=== PATIENT | female | born 1975 | race Caucasian/White ===

== ENCOUNTER 2018-03-01 21:33 | Emergency (ER) | payer OTHER ==
--- OUTSIDE RECORDS SUMMARY | 2018-03-01 21:36 | XMS REPORT | Clinical Summary ---
:1975 Author Organization [facility] Address [address] [place] [address] Phone Care Team Providers Name Role Phone Unavailable Primary Care Provider Unavailable Allergies No Known Allergies Current Medications Not on file Active Problems Not on file Social History Tobacco Use Types Packs/Day Years Used Date Never Assessed Sex Assigned at Date Recorded Not on file Last Filed Vital Signs Not on file Plan of Treatment Not on file Results Not on fileafter 02/28/2017
[2018-03-01 23:44] LABS: Absolute Lymphocytes (CBC) 1.6 K/uL (0.7-4.9); Absolute Monocytes 0.6 K/uL (0.1-1.3); Absolute Neutrophil 10.4 K/uL (1.8-8.0); Basophils % 0.2 % (0-1.3); Eosinophils % 0.4 % (0-4.4); Hematocrit 40.8 % (36.0-45.0); Lymphocytes % 12.7 % (15.3-44.8); MCH 29.6 pg (27.0-35.0); MCV 88.6 fL (80-100)
[2018-03-01 23:50] LABS: Potassium 3.7 mEq/L (3.6-5.0)
[2018-03-01 23:56] LABS: Albumin 3.6 g/dL (3.2-5.5); Bilirubin Direct 0.2 mg/dL (0-0.2); Bilirubin Total 0.6 mg/dL (0.3-1.2); Protein, Total 7.8 g/dL (6.0-8.3)
[2018-03-01 23:59] LABS: CKMB Creatine Kinase MB 2.4 ng/ml (0.3-4.0)
[2018-03-02 00:01] LABS: Protime INR 1.27
[2018-03-02] MEDS ORDERED: MORPHINE 4 MG/ML SYR ONE (00:17)
[2018-03-02] MEDS ORDERED: ONDANSETRON 4 MG/2 ML VIAL ONE (00:17)
[2018-03-02] MEDS ORDERED: NA CHLORIDE 0.9% 1,000 ML ONE (00:57)
[2018-03-02 02:19] LABS: Urine Blood NEGATIVE (NEG); Urine Glucose NEGATIVE (NEG); Urine Protein NEGATIVE (NEG); Urine Specific Gravity 1.015 (1.005-1.030); Urine pH 7.5 (5.0-7.0)
[2018-03-02] MEDS ORDERED: FLEET ENEMA ADULT PR ONE (02:59)
[2018-03-02] MEDS ORDERED: MAGNESIUM CITRATE 300 ML BOT ONE (02:59)
--- NOTE | 2018-03-02 03:56 | ER ---
Nurse's Notes [facility] Name: Cesilia Ravi Age: 42 yrs Sex: Female : 1975 Arrival Date: 03/01/2018 Time: 21:35 Bed 17 Private MD: Diagnosis: Fecal impaction Presentation: 03/01 21:45 Presenting complaint: Patient states: "I had a rectal abscess removed last year that lk1 lasted for a year. They fixed it two months ago. I now have lost all control of my bowels. 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 Transition of care: patient was not received from another setting of care. Onset of symptoms was February 12, 2018. Initial Sepsis Screen: Does the patient meet any 2 criteria? No. Patient's initial sepsis screen is negative. Does the patient have a suspected source of infection? No. Patient's initial sepsis screen is negative. Care prior to arrival: None. 21:45 Method Of Arrival: Wheelchair lk1 21:45 Acuity: TONY 3 lk1 Triage Assessment: 21:48 General: Appears uncomfortable, Behavior is appropriate for age, agitated, anxious. lk1 Pain: Complains of pain in abdomen Pain currently is 10 out of 10 on a pain scale. GI: Reports diarrhea. 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 - Social history:: Smoking status: Patient/guardian denies using tobacco. Screenin:59 Abuse screen: Denies threats or abuse. Denies injuries from another. Nutritional bp screening: No deficits noted. Tuberculosis screening: No symptoms or risk factors identified. Fall Risk None identified. Assessment: 21:57 Reassessment: PT ANXIOUS, STATES BOWEL INCONTINENCE AND BUE/BLE IMMOBILITY AFTER RECTAL bp ABSCESS REMOVAL. PT MOVING EXTREMITIES WITHOUT DIFFICULTY. General: Appears distressed, comfortable, obese, Behavior is cooperative, appropriate for age, anxious. Pain: Complains of pain in buttocks. Neuro: Level of Consciousness is awake, alert, obeys commands, Oriented to person, place, time, situation, Appropriate for age. Cardiovascular: No deficits noted. Respiratory: Airway is patent Respiratory effort is even, unlabored, Respiratory pattern is regular, symmetrical. GI: Reports diarrhea. : No signs and/or symptoms were reported regarding the genitourinary system. EENT: No deficits noted. Derm: No deficits noted. Musculoskeletal: Circulation, motion, and sensation intact. Range of motion: intact in all extremities. 23:17 Reassessment: PT DRINKING PO CONTRAST, CT PENDING. PT STATES UNABLE TO MOVE ARMS TO bp CHANGE OWN BRIEF, BUT NO ALTERED ROM NOTED. 23:29 Reassessment: PO CONTRAST COMPLETED, CT NOTIFIED. 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 bp 02:52 Reassessment: PER PROVIDER, PT HAS FECAL IMPACTION, MOVED TO B/S COMMODE. bp 03:40 Reassessment: PT HAD SUCCESSFUL BOWEL MOVEMENT, PROVIDER NOTIFIED. bp 04:17 Reassessment: PT D/C HOME AMBULATORY, DX WITH FECAL IMPACTION. bp Vital Signs: 03/01 21:49 BP 140 / 84; Pulse 106; Resp 30; Temp 99.3(O); Pulse Ox 96% on R/A; Weight 136.08 kg lk1 (R); Height 5 ft. 9 in. (175.26 cm) (R); Pain 10/10; 23:30 BP 132 / 83; Pulse 103; Resp 23; Pulse Ox 97% ; bp 03/02 01:30 BP 103 / 75; Pulse 106; Resp 16; Pulse Ox 95% on R/A; bp 02:49 BP 125 / 69; Pulse 103; Resp 18; Pulse Ox 100% ; bp 03/01 21:49 Body Mass Index 44.30 (136.08 kg, 175.26 cm) lk1 ED Course: 03/01 21:35 Patient arrived in ED. es 21:46 Triage completed. lk1 21:51 Arm band placed on left wrist. lk1 21:57 Tal Tirado, RN is Primary Nurse. bp 21:59 Patient has correct armband on for positive identification. Bed in low position. Call bp light in reach. Side rails up X2. Adult w/ patient. 22:24 Sha Duran PA is PHCP. cp 22:24 Sha Chambers MD is Attending Physician. cp 22:50 X-ray completed. Portable x-ray completed in exam room. Patient tolerated procedure bb2 well. 22:51 XRAY Chest (1 view) In Process Unspecified. EDMS 23:05 Inserted saline lock: 20 gauge in right forearm, using aseptic technique. Blood bp collected. 03/02 01:31 Radiology exam delayed due to Pt on bed servin at this time. mw3 01:44 Straight cath inserted, using sterile technique, 16 Fr. Specimen obtained. bp 01:[address] via stretcher. mw3 01:52 CT completed. Patient tolerated procedure well. mw3 01:53 CT Abd/Pelvis - W/Contrast In Process Unspecified. EDMS 02:11 Patient moved back from CT. nj 04:17 No provider procedures requiring assistance completed. IV discontinued, intact, bp bleeding controlled, No redness/swelling at site. Pressure dressing applied. Administered Medications: 00:45 Drug: morphine 4 mg Route: IVP; Site: right antecubital; bp 00:59 Follow up: Response: Pain is decreased bp 00:45 Drug: Zofran 4 mg Route: IVP; Site: right antecubital; bp 00:58 Follow up: Response: Pain is decreased bp 00:58 Drug: NS 0.9% 1000 ml Route: IV; Rate: 1 bolus; Site: right antecubital; bp 04:16 Follow up: IV Status: Completed infusion bp 00:58 Drug: NS 0.9% 1000 ml Route: IV; Rate: 100 ml/hr; Site: right antecubital; bp 04:16 Follow up: IV Status: Completed infusion; IV Intake: 1000ml bp 03:06 Drug: Magnesium Citrate Liquid 300 ml Route: PO; bp 04:16 Follow up: Response: Marked relief of symptoms bp 03:06 Drug: Fleet Enema 133 ml Route: MT; bp 04:15 Follow up: Response: Marked relief of symptoms bp Point of Care Testing: Guaiac: 03/01 23:05 Stool Guaiac: Negative; Stool Hemoccult Control: Pass; bp Intake: 03/02 04:16 IV: 1000ml; Total: 1000ml. bp Outcome: 03:56 Discharge ordered by MD. cp 04:17 Discharged to home ambulatory, with family. bp 04:17 Condition: stable 04:17 Discharge instructions given to patient, Instructed on discharge instructions, follow up and referral plans. medication usage, Demonstrated understanding of instructions, follow-up care, medications, Prescriptions given X 2. 04:18 Patient left the ED. bp Signatures: Dispatcher [employer] EDMS Talia Baxter Corey, PA PA cp Maria Luisa Carrion RN RN lk1 Lyle Hughes Brian, RN RN bp Stefany Ridley bb2 Lucia Calvo mw3 Corrections: (The following items were deleted from the chart) 03/01 21:48 21:45 Presenting complaint: Patient states: "I had a rectal abscess removed last year lk1 that lasted for a year. They fixed it two months ago. I now have lost all control of my bowels. I keep losing mobility in my arms and legs." lk1 03/02 03:23 02:52 Reassessment: PER PROVIDER, PT HAS FECAL IMPACTION bp bp
--- NOTE | 2018-03-02 03:56 | EDPHYS ---
Physician Documentation [facility] Name: Cesilia Ravi Age: 42 yrs Sex: Female : 1975 Arrival Date: 03/01/2018 Time: 21:35 Bed 17 Private MD: ED Physician Sha Chambers HPI: 03/01 22:40 This 42 yrs old Female presents to ER via Wheelchair with complaints of cp Diarrhea, Feet Swelling. 22:40 The patient presents to the emergency department with diarrhea, that is continuous, cp abdominal pain, of the right lower quadrant and left lower quadrant. 22:40 Onset: The symptoms/episode began/occurred today. Possible causes: history of surgery cp for rectal abscess last year. 22:40 Associated signs and symptoms: Pertinent negatives: anorexia, dysuria, fever, GI cp bleeding, vomiting. Severity of symptoms: in the emergency department the symptoms are unchanged. Patient also c/o swelling bilateral feet. 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 - Social history:: Smoking status: Patient/guardian denies using tobacco. ROS: 22:48 Constitutional: Negative for body aches, chills, fever, poor PO intake. cp 22:48 Eyes: Negative for injury, pain, redness, and discharge. cp 22:48 ENT: Negative for drainage from ear(s), ear pain, sore throat, difficulty swallowing, cp difficulty handling secretions. 22:48 Cardiovascular: Negative for chest pain, palpitations. 22:48 Respiratory: Negative for cough, shortness of breath, wheezing. 22:48 Abdomen/GI: Positive for abdominal pain, diarrhea, Negative for vomiting, anorexia, black/tarry stool, rectal bleeding. 22:48 Back: Negative for pain at rest, pain with movement, radiated pain. 22:48 MS/extremity: Positive for swelling, of the right foot and left foot, Negative for injury or acute deformity, pain. 22:48 Skin: Negative for cellulitis, rash. 22:48 Neuro: Negative for altered mental status, dizziness, headache, syncope, near syncope, weakness. 22:48 All other systems are negative. Exam: 22:55 Constitutional: The patient appears in no acute distress, alert, awake, cp non-diaphoretic, non-toxic, well developed, well nourished, obese, uncomfortable. 22:55 Head/Face: Normocephalic, atraumatic. Eyes: Pupils equal round and reactive to light, cp extra-ocular motions intact. Lids and lashes normal. Conjunctiva and sclera are non-icteric and not injected. Cornea within normal limits. Periorbital areas with no swelling, redness, or edema. ENT: Nares patent. No nasal discharge, no septal abnormalities noted. Tympanic membranes are normal and external auditory canals are clear. Oropharynx with no redness, swelling, or masses, exudates, or evidence of obstruction, uvula midline. Mucous membranes moist. Neck: Trachea midline, no thyromegaly or masses palpated, and no cervical lymphadenopathy. Supple, full range of motion without nuchal rigidity, or vertebral point tenderness. No Meningismus. Chest/axilla: Normal chest wall appearance and motion. Nontender with no deformity. No lesions are appreciated. 22:55 Cardiovascular: Rate: tachycardic, Rhythm: regular, Pulses: Pulses are 2+ in right radial artery and left radial artery. JVD: is not appreciated. 22:55 Respiratory: the patient does not display signs of respiratory distress, Respirations: normal, no use of accessory muscles, no retractions, no splinting, no tachypnea, labored breathing, is not present, Breath sounds: are clear throughout, no decreased breath sounds, no stridor, no wheezing. 22:55 Abdomen/GI: Inspection: obese Bowel sounds: active, all quadrants, Palpation: soft, in all quadrants, mild abdominal tenderness, in all quadrants, rebound tenderness, is not appreciated, voluntary guarding, is not appreciated, involuntary guarding, is not appreciated. 22:55 Back: ROM is normal, CVA tenderness, is absent. 22:55 : Rectal exam: Guaiac testing: results were negative for occult blood. 22:55 Musculoskeletal/extremity: Extremities: grossly normal except: noted in the right foot and left foot: mild swelling, Sensation intact. 22:55 Skin: cellulitis, is not appreciated, no rash present. 22:55 Neuro: Orientation: to person, place \T\ time. Mentation: lucid, able to follow commands, Cerebellar function: is grossly normal, Motor: moves all fours, strength is normal, Sensation: is normal. 23:15 ECG was reviewed by the Attending Physician. cp Vital Signs: 21:49 BP 140 / 84; Pulse 106; Resp 30; Temp 99.3(O); Pulse Ox 96% on R/A; Weight 136.08 kg lk1 (R); Height 5 ft. 9 in. (175.26 cm) (R); Pain 10/10; 23:30 BP 132 / 83; Pulse 103; Resp 23; Pulse Ox 97% ; bp 03/02 01:30 BP 103 / 75; Pulse 106; Resp 16; Pulse Ox 95% on R/A; bp 02:49 BP 125 / 69; Pulse 103; Resp 18; Pulse Ox 100% ; bp 03/01 21:49 Body Mass Index 44.30 (136.08 kg, 175.26 cm) lk1 MDM: 03/01 22:24 Patient medically screened. cp 23:00 Differential diagnosis: gastritis, diverticulitis, viral gastroenteritis, cp gastroenteritis, fecal impaction, dehydration, kidney failure, electrolyte abnormality, bowel obstruction. 03/02 03:55 Data reviewed: vital signs, nurses notes, lab test result(s), EKG, radiologic studies, cp CT scan, plain films. 03:55 Counseling: I had a detailed discussion with the patient and/or guardian regarding: the cp historical points, exam findings, and any diagnostic results supporting the discharge/admit diagnosis, lab results, radiology results, the need for outpatient follow up, surgeon who performed rectal abscess surgery, to return to the emergency department if symptoms worsen or persist or if there are any questions or concerns that arise at home. Response to treatment: the patient's symptoms have markedly improved after treatment, fecal impaction resolved as patient observed to have large bowel movement in ED, and as a result, I will discharge patient. 03/01 22:32 Order name: Basic Metabolic Panel; Complete Time: 00:37 cp 03/02 00:37 Interpretation: Normal except: CL 99; GLUC 128; CRE 1.01; GFR 60. cp 03/01 22:32 Order name: BNP; Complete Time: 00:37 cp 03/01 22:32 Order name: CBC with Diff; Complete Time: 00:37 cp 03/02 01:00 Interpretation: Normal except: WBC 12.8; WILLIAM% 81.7; LYM% 12.7; NEUT A 10.4. cp 03/01 22:32 Order name: Ckmb; Complete Time: 00:37 cp 03/01 22:32 Order name: CPK; Complete Time: 00:37 cp 03/01 22:32 Order name: LFT's; Complete Time: 00:37 cp 03/02 01:00 Interpretation: Normal except: GLOB 4.2; A/G 0.9. cp 03/01 22:32 Order name: Magnesium; Complete Time: 00:37 cp 03/01 22:32 Order name: PT-INR; Complete Time: 00:37 cp 03/02 01:01 Interpretation: Abnormal: PT 15.0. 03/01 22:32 Order name: Ptt, Activated; Complete Time: 00:37 cp 03/01 22:32 Order name: Troponin (emerg Dept Use Only); Complete Time: 00:37 cp 03/02 01:01 Interpretation: Within normal limits: TROPED < 0.03. 03/01 22:32 Order name: Lipase; Complete Time: 00:37 cp 03/02 01:00 Interpretation: LIP 12; Reviewed. 03/02 01:54 Order name: Urine Dipstick--Ancillary (enter results) [facility] 03/02 01:54 Order name: Urine --Ancillary (enter results) [facility] 03/02 01:55 Order name: Urine Dipstick-Ancillary; Complete Time: 02:36 EDMS 03/01 22:32 Order name: Urine Test (obtain specimen); Complete Time: 01:44 cp 03/01 22:32 Order name: XRAY Chest (1 view) 03/01 22:32 Order name: EKG; Complete Time: 22:33 cp 03/01 22:32 Order name: Cardiac monitoring; Complete Time: 23:05 cp 03/01 22:32 Order name: EKG - Nurse/Tech; Complete Time: 23:05 cp 03/01 22:32 Order name: IV Saline Lock; Complete Time: 23:06 cp 05/18 22:32 Order name: Labs collected and sent; Complete Time: 23:06 cp 03/01 22:32 Order name: O2 Per Protocol; Complete Time: 23:06 cp 03/01 23:01 Order name: CT Abd/Pelvis - W/Contrast cp 03/02 01:55 Order name: Urine --Ancillary; Complete Time: 02:36 EDMS 03/01 22:32 Order name: O2 Sat Monitoring; Complete Time: 23:06 cp 03/01 22:32 Order name: Urine Dipstick-Ancillary (obtain specimen); Complete Time: 01:44 cp 03/02 01:02 Order name: Cath; Complete Time: 01:19 cp EC/18 23:15 Rate is 105 beats/min. Rhythm is regular. ME interval is normal. QRS interval is cp normal. QT interval is normal. No ST changes noted. Interpreted by me. Reviewed by me. Administered Medications: 03/02 00:45 Drug: morphine 4 mg Route: IVP; Site: right antecubital; bp 00:59 Follow up: Response: Pain is decreased bp 00:45 Drug: Zofran 4 mg Route: IVP; Site: right antecubital; bp 00:58 Follow up: Response: Pain is decreased bp 00:58 Drug: NS 0.9% 1000 ml Route: IV; Rate: 1 bolus; Site: right antecubital; bp 04:16 Follow up: IV Status: Completed infusion bp 00:58 Drug: NS 0.9% 1000 ml Route: IV; Rate: 100 ml/hr; Site: right antecubital; bp 04:16 Follow up: IV Status: Completed infusion; IV Intake: 1000ml bp 03:06 Drug: Magnesium Citrate Liquid 300 ml Route: PO; bp 04:16 Follow up: Response: Marked relief of symptoms bp 03:06 Drug: Fleet Enema 133 ml Route: ME; bp 04:15 Follow up: Response: Marked relief of symptoms bp Point of Care Testing: Guaiac: 03/01 23:05 Stool Guaiac: Negative; Stool Hemoccult Control: Pass; bp Disposition: 03/02/18 03:56 Discharged to Home. Impression: Fecal impaction. - Condition is Stable. - Discharge Instructions: Fecal Impaction. - Prescriptions for Miralax 17 gram/dose Oral - take 1 packet by ORAL route once daily for 7 days dilute powder in 8 ounces of water or juice; 7 packet. Colace 100 mg Oral Tablet - take 1 tablet by ORAL route every 12 hours; 14 tablet. - Medication Reconciliation Form, Thank You Letter, Antibiotic Education, Prescription Opioid Use form. - Follow up: Private Physician; When: 1 - 2 days; Reason: Recheck today's complaints. - Problem is new. - Symptoms have improved. Addendum: 03/04/2018 09:12 Co-signature as Attending Physician, Sha Chambers MD I agree with the assessment and c huang plan of care. Signatures: Dispatcher [employer] EDHI Sha Chambers MD MD cha Page, Corey PA PA cp Maria Luisa Carrion, RN RN lk1 Tal Tirado RN RN bp Corrections: (The following items were deleted from the chart) 03/02 04:18 03:56 03/02/2018 03:56 Discharged to Home. Impression: Fecal impaction. Condition is bp Stable. Forms are Medication Reconciliation Form, Thank You Letter, Antibiotic Education, Prescription Opioid Use. Follow up: Private Physician; When: 1 - 2 days; Reason: Recheck today's complaints. Problem is new. Symptoms have improved. cp
[2018-03-02 04:23] VITALS: TEMP 99.3
[2018-03-02 04:26] VITALS: BP 125/69; O2SAT 100
--- NOTE | 2018-03-02 06:28 | EKG ---
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
--- NOTE | 2018-03-02 08:30 | RAD REPORT ---
EXAM DESCRIPTION: RAD - Chest Single View - 03/01/2018 10:50 pm CLINICAL HISTORY: Shortness of breath, lower extremity swelling COMPARISON: April 2017 TECHNIQUE: AP portable chest image was obtained 2247 hours . FINDINGS: Lungs are clear. Heart and vasculature are normal. No measurable pleural effusion and no p neumothorax. No gross bony abnormality seen. No acute aortic findings suspected. IMPRESSION: No acute cardiopulmonary process. No significant interval change.
--- NOTE | 2018-03-02 09:10 | RAD REPORT ---
EXAM DESCRIPTION: CT - Abdomen Pelvis W Contrast - 03/02/2018 1:53 am CLINICAL HISTORY: Abdominal pain, loss of bowel function, history of rectal abscess repair 2 months earlier, history of mastectomy for carcinoma A preliminary written report was provided at the time of the study, and the report was reviewed prio r to final dictation. COMPARISON: None. TECHNIQUE: Biphasic, helical CT imaging of the abdomen and pelvis was performed following 100 ml non -ionic IV contrast. Oral contrast was given. All CT scans are performed using dose optimization technique as appropriate and may include automated exposure control or mA/KV adjustment according to patient size. FINDINGS: No suspicious findings in the lung bases. The liver, spleen, and pancreas show no suspicious findings. The liver does have a diffuse fatty infi ltration in both the liver and spleen have benign granulomatous type calcifications. Gallbladder is d istended but not dilated. No wall thickening or edema. Biliary tree within normal limits. Symmetric renal function is seen with no hydronephrosis or suspicious renal mass. No pyelonephritis o r acute renal parenchymal process. No adrenal abnormality. Urinary bladder is also unremarkable. Left deviated uterus shows no suspicious finding. No ovarian abnormality seen. No gastric dilatation or gastric wall thickening. Small bowel is unremarkable. No appendicitis. From cecum through descending colon there is no acute colon process seen. Moderate stool volume is present within an otherwise unremarkable sigmoid colon. There is redundancy of the sigmoid colon. Large amou nt of stool distends the rectum. There is trace amount of stranding in the perirectal fat an a circum ferential thickening of the anal rectal junction. There is some low density along the anterior margin of the anal rectal junction (image 107/114). However, the finding is not sufficient for abscess diag nosis on CT imaging. No congestion or edema in the perineal fat. No free air, free fluid or pneumatosis. No hernia, mass or bulky lymphadenopathy. No suspicious bony findings. IMPRESSION: Circumferential wall thickening at the anorectal junction. Low-density area 2 cm in size is present at the anterior margin. This is not defined enough for abscess characterization. Large stool volume distending the rectum. There is mild congestion or edema in the perirectal fat. Diffuse fatty infiltration of the liver.
== END 2018-03-02 04:18 | disposition home or self-care (01) ==
LOC: ER 21:33
DX: K56.41 Fecal impaction (principal); I10 Essential (primary) hypertension; Z85.3 Personal history of malignant neoplasm of breast; Z88.6 Allergy status to analgesic agent; Z88.8 Allergy status to other drugs, medicaments and biological substances; Z90.13 Acquired absence of bilateral breasts and nipples
CPT/HCPCS: 36415; 51702; 71045; 74177; 80048; 80076; 81003; 81025; 82550; 82553; 83690; 83735; 83880; 84484; 85025; 85610; 85730; 93005; 96361; 96374; 96375; 99284; J2405; J7030; Q9967